=== PATIENT | female | born 1955 ===

== ENCOUNTER 2018-06-23 11:25 | Outpatient (CLI) | payer SELFPAY | END 2018-06-23 11:26 | disposition home or self-care (01) | LOC: C.RADIC 11:25 | DX: M54.9 Dorsalgia, unspecified (principal) ==

== ENCOUNTER 2018-09-29 14:24 | Outpatient (CLI) | payer OTHER | END 2018-09-29 14:25 | disposition home or self-care (01) | LOC: C.MAMMO 14:24 | DX: Z12.31 Encounter for screening mammogram for malignant neoplasm of breast (principal) ==